=== PATIENT | male | born 1975 | race Two or more races ===

== ENCOUNTER 2023-03-04 22:33 | Emergency (ER) | payer SELFPAY ==
[~2023-03-04] VITALS: Ht 165.1 cm; Wt 73.3 kg
[2023-03-04 23:05] LABS: BASOPHILS % (AUTO) 1.2 % (0.0-2.0); HEMATOCRIT 38.7 % (41-53); HEMOGLOBIN 12.9 g/dL (13.5-17.5); LYMPHOCYTES # (AUTO) 2.9 K/uL (1.0-4.8); LYMPHOCYTES % (AUTO) 37.8 % (22.0-44.0); MEAN CORPUSCULAR HEMOGLOBIN 30.4 pg (26.0-34.0); MEAN CORPUSCULAR HGB CONC 33.3 G/dL (31.0-37.0); MEAN CORPUSCULAR VOLUME 91 fL (80-100); MONOCYTES # (AUTO) 0.8 K/uL (0.1-1.0); MONOCYTES % (AUTO) 9.9 % (2.0-9.0); NEUTROPHILS # (AUTO) 3.8 K/uL (1.8-7.7); NEUTROPHILS % (AUTO) 49.1 % (40.0-70.0); PLATELET COUNT (AUTO) 301 K/uL (150-450); RED BLOOD CELL COUNT(AUTO) 4.24 MIL/uL (4.50-5.90); RED CELL DISTRIBUTION WIDTH 14.2 % (11.5-14.5); WHITE BLOOD COUNT (AUTO) 7.7 K/uL (4.5-11.0)
[2023-03-04 23:15] LABS: ANION GAP 10 mmol/L (8-16); CALCIUM, TOTAL 8.4 mg/dL (8.8-10.5); CARBON DIOXIDE 26 mmol/L (22-29); CHLORIDE 102 mmol/L (98-107); CREATININE 1.08 mg/dL (0.60-1.30); GLOMERULAR FILTR. RATE CALC > 60 mL/min (>60); GLUCOSE,RANDOM 169 mg/dL (70-110); POTASSIUM 3.7 mmol/L (3.5-5.1); SODIUM SERUM 138 mmol/L (136-145); UREA NITROGEN, BLOOD 23 mg/dL (7-18)
[2023-03-04 23:20] LABS: ALCOHOL, BLOOD (SERUM) < 3 mg/dL (0-10)
[2023-03-04 23:22] LABS: TROPONIN I-HIGH SENSITIVITY 9 ng/L (<76)
[2023-03-04 23:25] LABS: B-TYPE NATRIURETIC PEPTIDE 6 pg/mL (0-100)
[2023-03-04] MEDS ORDERED: ONDANSETRON HCL 4 MG/2 ML VIAL IVP ONE (23:30)
[2023-03-04 23:31] LABS: ALANINE AMINOTRANSFERASE 101 U/L (12-78); ALBUMIN 3.7 g/dL (3.4-5.0); ALKALINE PHOSPHATASE 65 U/L (46-116); ASPARTATE AMINOTRANSFERASE 52 U/L (15-37); BILIRUBIN,TOTAL 0.2 mg/dL (0.1-1.0); CREATINE KINASE, TOTAL ONLY 210 U/L (39-308); TOTAL PROTEIN, SERUM 7.4 g/dL (6.4-8.2)
[2023-03-04 23:37] VITALS: TEMP 98.4
[2023-03-05] LABS: COVID AG,FIA SOURCE NASAL SWAB
[2023-03-05 00:16] LABS: SARS-COV2 (COVID) ANTIGEN,FIA Negative (Negative)
[2023-03-05 01:55] LABS: TROPONIN I-HIGH SENSITIVITY 13 ng/L (<76)
[2023-03-05] MEDS ORDERED: NALO4SPR NASAL (04:05)
[2023-03-05 06:12] VITALS: BP 115/81; PULSE 66; RESP 14
== END 2023-03-05 06:19 | disposition home or self-care (01) ==
LOC: EMS 22:35
DX: T40.601A Poisoning by unspecified narcotics, accidental (unintentional), initial encounter (principal); R53.83 Other fatigue; Z20.822 Contact with and (suspected) exposure to COVID-19; Y92.89 Other specified places as the place of occurrence of the external cause
CPT/HCPCS: 99285; 96374; 71045; 87426; 80053; 82550; 83880; 84484; 85025; 36415; 93005; G0480; J2405